=== PATIENT | male | born 1940 | race Caucasian/White ===

== ENCOUNTER → 2016-09-25 | Outpatient (CLI) | payer MEDICARE, OTHER ==
[~2016-09-25] MED LIST: AMARYL 2MG TABLE2 MG PO; ANTIVERT 25MG T25 MG PO; ASPIR 8181 MG PO; EFFER-K 10 MEQ10 MEQ PO; LASIX40 MG PO; NEURONTIN100 MG PO; NORVASC 5 MG TAB5 MG PO; OMEPRAZOLE20 MG PO; TENORMIN 50 MG50 MG PO; ZYLOPRIM 100 M100 MG PO
== END ==
LOC: KOH-I 12:07
DX: M25.512 Pain in left shoulder (principal)
CPT/HCPCS: 73030

== ENCOUNTER 2016-10-04 02:13 | Inpatient (IN) | payer MEDICARE, OTHER ==
[~2016-10-04] VITALS: Ht 170.2 cm; Wt 99.8 kg
[2016-10-04 03:24] LABS: HEMOGLOBIN 12.4 gm/dl (14.0-17.5); RED BLOOD COUNT 4.3 M/UL (4.20-5.50); WHITE BLOOD COUNT 7.5 K/UL (4.5-11.0)
[2016-10-04 03:43] LABS: BUN/CREATININE RATIO 20 (0-10)
[2016-10-04] MEDS ORDERED: NORVASC 5 MG TAB5 MG PO (10:11)
[2016-10-04] MEDS ORDERED: TENORMIN 50 MG50 MG PO (10:11)
[2016-10-04] MEDS ORDERED: ZYLOPRIM 100 M100 MG PO (10:11)
[2016-10-04] MEDS ORDERED: AMARYL 2MG TABLE2 MG PO (10:11)
[2016-10-04] MEDS ORDERED: EFFER-K 10 MEQ10 MEQ PO (10:13)
[2016-10-04] MEDS ORDERED: OMEPRAZOLE20 MG PO (10:13)
[2016-10-04] MEDS ORDERED: NEURONTIN100 MG PO (10:14)
[2016-10-04] MEDS ORDERED: LASIX40 MG PO (10:14)
[2016-10-05 06:05] LABS: HEMOGLOBIN 13.2 gm/dl (14.0-17.5); RED BLOOD COUNT 4.58 M/UL (4.20-5.50); WHITE BLOOD COUNT 9.3 K/UL (4.5-11.0)
[2016-10-05 06:21] LABS: BUN/CREATININE RATIO 16 (0-10)
[2016-10-05] MEDS ORDERED: ANTIVERT 25MG T25 MG PO (11:09)
[2016-10-05] MEDS ORDERED: ASPIR 8181 MG PO (11:09)
== END 2016-10-05 12:30 | disposition home or self-care (01) | DRG 149 ==
LOC: ER1 02:13 → ZEROF 05:55 → M/S 08:09
PROVIDERS: Emergency Medicine; Family Medicine; ADMIT Family Medicine
DX: H81.10 Benign paroxysmal vertigo, unspecified ear (principal); I10 Essential (primary) hypertension; M10.9 Gout, unspecified; K21.9 Gastro-esophageal reflux disease without esophagitis; E55.9 Vitamin D deficiency, unspecified; I65.23 Occlusion and stenosis of bilateral carotid arteries; E78.5 Hyperlipidemia, unspecified; F10.21 Alcohol dependence, in remission; E11.9 Type 2 diabetes mellitus without complications; M54.5 Low back pain; Z86.010 Personal history of colon polyps; G89.29 Other chronic pain; Z09 Encounter for follow-up examination after completed treatment for conditions other than malignant neoplasm; Z88.0 Allergy status to penicillin; Z79.899 Other long term (current) drug therapy; Z85.46 Personal history of malignant neoplasm of prostate; Z79.84 Long term (current) use of oral hypoglycemic drugs
CPT/HCPCS: 36415; 70450; 70553; 80048; 80053; 82550; 82553; 83874; 84484; 85025; 85027; 93005; 93880; 96361; 96374; 96375; 96376; 99285; A9577; J2270; J2405; J7030

== ENCOUNTER 2020-06-15 19:32 | Emergency (ER) | payer MEDICARE, OTHER ==
[~2020-06-15 19:32] MED LIST changes: +CORTIZONE-1057 GM TP; -EFFER-K 10 MEQ10 MEQ PO; +FISH OIL 1,0001 EACH PO; +MULTIVITAMINS1 EAC1 PO; +POTASSIUM CHLO20 ME1 PO; +PREDNISONE20 MG PO; +ZYRTEC10 M3 PO
== END 2020-06-15 23:30 | disposition left against medical advice (07) ==
LOC: ER1 19:32
DX: R11.0 Nausea (principal); Z53.21 Procedure and treatment not carried out due to patient leaving prior to being seen by health care provider

== ENCOUNTER → 2020-09-28 | Outpatient (CLI) | payer MEDICARE, OTHER | LOC: KOH-I 10:16 | DX: M51.36 Other intervertebral disc degeneration, lumbar region (principal) | CPT/HCPCS: 72148 ==

== ENCOUNTER → 2021-07-25 | Outpatient (CLI) | payer MEDICARE, OTHER ==
[2021-07-25 08:51] LABS: HEMOGLOBIN 13.3 gm/dl (14.0-17.5); RED BLOOD COUNT 4.87 M/UL (4.20-5.50); WHITE BLOOD COUNT 7.2 K/UL (4.5-11.0)
[2021-07-25 09:25] LABS: BUN/CREATININE RATIO 19 (0-10)
[2021-07-27 13:16] LABS: CHOLESTEROL, TOTAL 174 mg/dL (100-199); HDL SIZE 8.6 nm (>=9.2); HDL-C 39 mg/dL (>39); HDL-P (TOTAL) 32.2 umol/L (>=30.5); LARGE HDL-P 2.7 umol/L (>=4.8); LARGE VLDL-P 2.9 nmol/L (<=2.7); LDL SIZE 20.2 nm (>20.5); LDL SIZE 20.2 nm (>=20.8); LDL-C 110 mg/dL (0-99); LDL-P 1337 nmol/L (<1000); LP-IR SCORE 67 (<=45); SMALL LDL-P 761 nmol/L (<=527); TRIGLYCERIDES 142 mg/dL (0-149); VLDL SIZE 44.8 nm (<=46.6)
== END ==
LOC: LAB 08:22
PROVIDERS: Emergency Medicine
DX: K21.9 Gastro-esophageal reflux disease without esophagitis (principal); I10 Essential (primary) hypertension; E79.0 Hyperuricemia without signs of inflammatory arthritis and tophaceous disease; E78.2 Mixed hyperlipidemia
CPT/HCPCS: 80053; 80061; 83704; 84550; 85025

== ENCOUNTER → 2021-09-08 | Outpatient (CLI) | payer MEDICARE, OTHER ==
[2021-09-08 12:20] LABS: BUN/CREATININE RATIO 22 (0-10)
== END ==
LOC: LAB 11:25
PROVIDERS: Nurse Practitioner
DX: I10 Essential (primary) hypertension (principal)
CPT/HCPCS: 36415; 80053

== ENCOUNTER → 2021-10-18 | Outpatient (CLI) | payer MEDICARE, OTHER | LOC: LAB 09:47 | DX: C61 Malignant neoplasm of prostate (principal) | CPT/HCPCS: 36415; 84153 ==

== ENCOUNTER → 2021-11-09 | Outpatient (CLI) | payer MEDICARE, OTHER ==
[2021-11-09 07:40] LABS: BUN/CREATININE RATIO 19 (0-10)
== END ==
LOC: LAB 06:49
PROVIDERS: Emergency Medicine
DX: I10 Essential (primary) hypertension (principal); K21.9 Gastro-esophageal reflux disease without esophagitis; E79.0 Hyperuricemia without signs of inflammatory arthritis and tophaceous disease; E78.2 Mixed hyperlipidemia; E11.9 Type 2 diabetes mellitus without complications
CPT/HCPCS: 36415; 80053; 83036

== ENCOUNTER → 2021-11-21 | Outpatient (CLI) | payer MEDICARE, OTHER | LOC: RAD 10:41 | DX: S20.212A Contusion of left front wall of thorax, initial encounter (principal); W18.39XA Other fall on same level, initial encounter | CPT/HCPCS: 71046 ==